=== PATIENT | female | born 1940 | race Caucasian/White ===

== ENCOUNTER 2019-10-05 11:20 | Emergency (ER) | payer MEDICARE ==
[~2019-10-05] VITALS: Ht 167.6 cm; Wt 54.5 kg
[2019-10-05] MEDS ORDERED: CefTRIAXone 2gm/D5W 50ml 50 ML IV ONE (11:35)
[2019-10-05] MEDS ORDERED: normal saline 1000ML IV soln IV ONE (11:35)
--- NOTE | 2019-10-05 11:50 | NUR ---
CALLED [facility] (ALEXANDRA) NUMBER: [phone] PICKED UP FROM [id number], [place]
[2019-10-05 11:52] VITALS: BP 117/70
--- NOTE | 2019-10-05 12:34 | NUR ---
PT CAREGIVER AT BEDSIDE. PT IS REFUSING IV AN LAB DRAWS. CHIOMA GOODEN NOTIFIED.
[2019-10-05 12:43] LABS: CLARITY,URINE SLIGHTLY CLOUDY (Clear); COLOR,URINE YELLOW (Yellow); GLUCOSE, URINE NEGATIVE (Neg); KETONES,URINE NEGATIVE (Neg); LEUKOCYTE ESTERASE ,URINE NEGATIVE (Neg); NITRITES, URINE NEGATIVE (Neg); OCCULT BLOOD,URINE NEGATIVE (Neg); PROTEIN,URINE NEGATIVE (Neg); UROBILINOGEN,URINE 0.2 E.U/dL (0.2-1.0)
[2019-10-05 12:52] LABS: UA COLLECTION TYPE STRAIGHT CATH
[2019-10-05 12:53] LABS: COARSE GRANULAR CAST 0-3 /LPF (NEGATIVE); HYALINE CASTS 0-3 /LPF (NEGATIVE)
[2019-10-05 12:54] LABS: BACTERIA,URINE NONE SEEN /HPF (Neg); FINE GRANULAR CAST 0-3 /LPF (NEGATIVE); MUCUS STRANDS NONE SEEN /LPF (Neg); RBC,URINE 0-2 /HPF (0-2); RENAL CELLS, URINE FEW /HPF; SQUAMOUS EPITHELIAL CELL,UR MODERATE /LPF (FEW); TRANSITIONAL EPI CELLS,URINE FEW /HPF; WBC,URINE 0-4 /HPF (0-4)
[2019-10-05 12:55] LABS: AMORPHOUS URATES 1+
--- NOTE | 2019-10-05 13:00 | NUR ---
PT. REFUSING LABS, VITAL SIGNS OR ANY INTERVENTIONS. CAREGIVER SITTING AT BEDSIDE. EMILY BEDOLLA AWARE.
== END 2019-10-05 15:09 | disposition home or self-care (01) ==
LOC: EDBD 11:21 → ER 11:21
DX: F03.91 Unspecified dementia, unspecified severity, with behavioral disturbance (principal); R41.0 Disorientation, unspecified; R32 Unspecified urinary incontinence; R45.1 Restlessness and agitation
CPT/HCPCS: 81001; 93005; 99284